=== PATIENT | male | born 1935 | race Caucasian/White ===

== ENCOUNTER 2016-09-21 05:33 | Day surgery (SDC) | payer MEDICARE, OTHER ==
[~2016-09-21 05:33] MED LIST: ASAB PO; CARDCD240 PO; CELEXA20 PO; COUMADIN7.5 MG PO; CYANO1000T PO; FLOMAX4 PO; FLONASE NAS; GLUCOPHAGE1000 MG PO; PROSCAR5 PO; UROCIT-K10 MEQ PO; Z300 PO; ZYRTEC ALLGY10 MG PO
[2016-09-21 06:15] LABS: PROTIME (NOT ORD) 13.5 SEC (12.0-14.5)
== END 2016-09-21 23:59 | disposition home or self-care (01) ==
LOC: SDC 05:33
PROVIDERS: Orthopaedic Surgery
PROC: 3E0S3BZ Introduction of Anesthetic Agent into Epidural Space, Percutaneous Approach (ICD-10-PCS; 2016-09-21)
PROC: 3E0S33Z Introduction of Anti-inflammatory into Epidural Space, Percutaneous Approach (ICD-10-PCS; principal; 2016-09-21 07:00)
DX: M54.16 Radiculopathy, lumbar region (principal); M54.5 Low back pain; N40.0 Benign prostatic hyperplasia without lower urinary tract symptoms; E11.9 Type 2 diabetes mellitus without complications; H54.41 Blindness, right eye, normal vision left eye; M19.90 Unspecified osteoarthritis, unspecified site; M10.9 Gout, unspecified; G47.33 Obstructive sleep apnea (adult) (pediatric); I10 Essential (primary) hypertension; I49.9 Cardiac arrhythmia, unspecified; I48.91 Unspecified atrial fibrillation; G62.9 Polyneuropathy, unspecified; Z96.1 Presence of intraocular lens; Z98.41 Cataract extraction status, right eye; Z98.42 Cataract extraction status, left eye; Z95.0 Presence of cardiac pacemaker; Z90.89 Acquired absence of other organs; Z87.442 Personal history of urinary calculi; Z96.653 Presence of artificial knee joint, bilateral; Z95.810 Presence of automatic (implantable) cardiac defibrillator; Z79.899 Other long term (current) drug therapy; Z79.01 Long term (current) use of anticoagulants; Z79.84 Long term (current) use of oral hypoglycemic drugs; Z79.51 Long term (current) use of inhaled steroids; Z79.82 Long term (current) use of aspirin
CPT/HCPCS: 82962; 85610; J2250; J3010; Q9967